=== PATIENT | female | born 1940 | race Caucasian/White ===

== ENCOUNTER 2023-01-22 10:31 | Inpatient (IN) | payer OTHER ==
[2023-01-22 11:02] VITALS: BMI 31.8
[2023-01-22 12:52] LABS: BASO % 1.1 % (0-2.0); EOS % 4.2 % (0-4.5); HEMATOCRIT 41.8 % (32.4-45.2); HEMOGLOBIN 13.8 GM/dL (10.7-15.3); LYMPH % 22.7 % (8-40); MCH 29.3 pg (25.7-33.7); MCHC 32.9 g/dl (32.0-36.0); MEAN CELL VOLUME 88.9 fl (80-96); MONO % 7.3 % (3.8-10.2); NEUT % 64.7 % (42.8-82.8); PLATELET COUNT 208 10^3/uL (134-434); RBC 4.71 M/mm3 (3.60-5.2); RDW 14.7 % (11.6-15.6)
[2023-01-22 13:04] LABS: INR 1.11 (0.83-1.09); PROTHROMBIN TIME (PATIENT) 12.9 SEC (9.7-13.0)
[2023-01-22 13:07] LABS: ACTIVATED PTT 31.4 SECONDS (25.2-36.5)
[2023-01-22 13:10] LABS: POTASSIUM 4.3 mmol/L (3.5-5.1)
[2023-01-22 13:13] LABS: ALBUMIN 3.7 g/dl (3.4-5.0); BLOOD UREA NITROGEN 12.2 mg/dL (7-18); CALCIUM 9.7 mg/dL (8.5-10.1)
[2023-01-22 13:16] LABS: CREATININE 0.8 mg/dL (0.55-1.3)
[2023-01-22 13:18] LABS: BILIRUBIN,TOTAL 0.7 mg/dL (0.2-1); TOT PROT 6.8 g/dl (6.4-8.2)
[2023-01-22] MEDS ORDERED: VANCOMYCIN 1,000 MG in DEXTROSE 5%-WATER - 250 ML IVPB SCH (13:30)
[2023-01-22] MEDS ORDERED: CEFAZOLIN SODIUM 2 GM in DEXTROSE 5%-WATER 100 ML IVPB SCH (13:30)
[2023-01-22] MEDS ORDERED: VANCOMYCIN 1 GRAM (PRE-DOCKED) 1,000 MG/250 ML BAG IVPB ONE (13:33)
[2023-01-23] MEDS: VANCOMYCIN/WATER FOR INJ (PEG) 1,000 MG/200 ML BAG IVPB SCH ×2 (01:25→13:24)
[2023-01-23 08:27] LABS: EOS % 4.8 % (0-4.5); HEMATOCRIT 40.1 % (32.4-45.2); LYMPH % 25.6 % (8-40); MCH 28.9 pg (25.7-33.7); MCHC 32.5 g/dl (32.0-36.0); MEAN PLT VOLUME 9.6 fl (7.5-11.1); MONO % 6.5 % (3.8-10.2); NEUT % 62.1 % (42.8-82.8); PLATELET COUNT 183 10^3/uL (134-434); RDW 14.6 % (11.6-15.6); WHITE BLOOD COUNT 5.1 K/mm3 (4.0-10.0)
[2023-01-23 08:51] LABS: POTASSIUM 3.8 mmol/L (3.5-5.1)
[2023-01-23 08:53] LABS: MAGNESIUM 1.9 mg/dL (1.8-2.4)
[2023-01-23 08:54] LABS: CALCIUM 8.9 mg/dL (8.5-10.1)
[2023-01-23 08:55] LABS: ALBUMIN 3.2 g/dl (3.4-5.0)
[2023-01-23 08:56] LABS: PHOSPHOROUS 3.7 mg/dL (2.5-4.9)
[2023-01-23 08:57] LABS: CREATININE 0.7 mg/dL (0.55-1.3)
[2023-01-23 08:58] LABS: BILIRUBIN,TOTAL 0.7 mg/dL (0.2-1)
[2023-01-23] MEDS: ENOXAPARIN NA (PORCINE) 40 MG/0.4 ML DISP.SYRIN SQ SCH (09:18)
[2023-01-24] MEDS: VANCOMYCIN/WATER FOR INJ (PEG) 1,000 MG/200 ML BAG IVPB SCH ×2 (03:32→14:50)
[2023-01-24] MEDS: ENOXAPARIN NA (PORCINE) 40 MG/0.4 ML DISP.SYRIN SQ SCH (09:08)
[2023-01-24] MEDS ORDERED: HYDROCORTISONE 0.5% TOPICAL OINTMENT TUBE TP PRN (16:20)
[2023-01-24] MEDS: GENTAMICIN SO4 0.1% TOPICAL OINTMENT 15 GM/TUBE TUBE TP SCH ×2 (17:51→21:31)
[2023-01-24] MEDS: HYDROCORTISONE 0.5% TOPICAL CREAM 30 GM TUBE TP PRN (17:52)
[2023-01-24] MEDS: diphenhydrAMINE HCL 25 MG CAPSULE (FP) PO PRN ×2 (21:31→21:34)
[2023-01-25] MEDS ORDERED: VANCOMYCIN 750 MG in DEXTROSE 5%-WATER - 250 ML IVPB SCH (03:00)
[2023-01-25] MEDS: VANCOMYCIN/WATER FOR INJ (PEG) 750 MG/150 ML BAG IVPB SCH ×2 (03:04→14:06)
[2023-01-25] MEDS: diphenhydrAMINE HCL 25 MG CAPSULE (FP) PO PRN ×2 (04:04→23:39)
[2023-01-25 09:08] LABS: BASO % 0.2 % (0-2.0); EOS % 7.4 % (0-4.5); HEMATOCRIT 40.8 % (32.4-45.2); HEMOGLOBIN 13.6 GM/dL (10.7-15.3); LYMPH % 20.5 % (8-40); MCH 29.3 pg (25.7-33.7); MCHC 33.2 g/dl (32.0-36.0); MEAN CELL VOLUME 88.2 fl (80-96); MEAN PLT VOLUME 9.8 fl (7.5-11.1); MONO % 5.4 % (3.8-10.2); NEUT % 66.5 % (42.8-82.8); PLATELET COUNT 180 10^3/uL (134-434); RBC 4.63 M/mm3 (3.60-5.2); RDW 14.7 % (11.6-15.6); WHITE BLOOD COUNT 6.2 K/mm3 (4.0-10.0)
[2023-01-25 09:41] LABS: POTASSIUM 4.2 mmol/L (3.5-5.1)
[2023-01-25] MEDS: HYDROCORTISONE 0.5% TOPICAL CREAM 30 GM TUBE TP PRN (09:50)
[2023-01-25] MEDS: GENTAMICIN SO4 0.1% TOPICAL OINTMENT 15 GM/TUBE TUBE TP SCH ×2 (09:50→22:36)
[2023-01-25 09:56] LABS: BLOOD UREA NITROGEN 12.6 mg/dL (7-18)
[2023-01-25 09:57] LABS: ALBUMIN 2.8 g/dl (3.4-5.0)
[2023-01-25 09:59] LABS: CALCIUM 8.5 mg/dL (8.5-10.1); CREATININE 0.7 mg/dL (0.55-1.3); MAGNESIUM 2.2 mg/dL (1.8-2.4)
[2023-01-25 10:00] LABS: TOT PROT 5.4 g/dl (6.4-8.2)
[2023-01-25 10:01] LABS: BILIRUBIN,TOTAL 0.6 mg/dL (0.2-1)
[2023-01-26] MEDS: VANCOMYCIN/WATER FOR INJ (PEG) 750 MG/150 ML BAG IVPB SCH ×2 (04:09→15:30)
[2023-01-26 09:38] LABS: BASO % 0.2 % (0-2.0); EOS % 7.4 % (0-4.5); HEMATOCRIT 41.9 % (32.4-45.2); HEMOGLOBIN 13.6 GM/dL (10.7-15.3); LYMPH % 15.2 % (8-40); MCH 28.7 pg (25.7-33.7); MCHC 32.4 g/dl (32.0-36.0); MEAN CELL VOLUME 88.6 fl (80-96); MONO % 4.3 % (3.8-10.2); NEUT % 72.9 % (42.8-82.8); PLATELET COUNT 178 10^3/uL (134-434); RBC 4.73 M/mm3 (3.60-5.2); RDW 14.6 % (11.6-15.6); WHITE BLOOD COUNT 6.4 K/mm3 (4.0-10.0)
[2023-01-26 09:52] LABS: POTASSIUM 3.9 mmol/L (3.5-5.1)
[2023-01-26 09:55] LABS: CALCIUM 8.3 mg/dL (8.5-10.1)
[2023-01-26 09:56] LABS: ALBUMIN 2.9 g/dl (3.4-5.0); BLOOD UREA NITROGEN 11.1 mg/dL (7-18)
[2023-01-26 09:59] LABS: CREATININE 0.6 mg/dL (0.55-1.3)
[2023-01-26 10:01] LABS: BILIRUBIN,TOTAL 0.5 mg/dL (0.2-1); TOT PROT 5.3 g/dl (6.4-8.2)
[2023-01-26] MEDS: GENTAMICIN SO4 0.1% TOPICAL OINTMENT 15 GM/TUBE TUBE TP SCH ×2 (13:51→22:58)
[2023-01-26] MEDS: diphenhydrAMINE HCL 25 MG CAPSULE (FP) PO PRN (22:52)
[2023-01-26] MEDS: HYDROCORTISONE 0.5% TOPICAL CREAM 30 GM TUBE TP PRN (22:54)
[2023-01-27] MEDS: VANCOMYCIN/WATER FOR INJ (PEG) 750 MG/150 ML BAG IVPB SCH ×2 (03:41→15:27)
[2023-01-27] MEDS: ACETAMINOPHEN 325 MG TABLET (FP) PO PRN (03:46)
[2023-01-27 09:35] LABS: BASO % 0.4 % (0-2.0); EOS % 6.5 % (0-4.5); HEMATOCRIT 42.2 % (32.4-45.2); HEMOGLOBIN 14.4 GM/dL (10.7-15.3); LYMPH % 13.4 % (8-40); MCH 29.7 pg (25.7-33.7); MEAN CELL VOLUME 87.3 fl (80-96); MEAN PLT VOLUME 10.1 fl (7.5-11.1); MONO % 3.8 % (3.8-10.2); NEUT % 75.9 % (42.8-82.8); PLATELET COUNT 189 10^3/uL (134-434); RBC 4.84 M/mm3 (3.60-5.2); RDW 14.7 % (11.6-15.6); WHITE BLOOD COUNT 7.7 K/mm3 (4.0-10.0)
[2023-01-27 09:57] LABS: POTASSIUM 3.9 mmol/L (3.5-5.1)
[2023-01-27 10:44] LABS: CREATININE 0.7 mg/dL (0.55-1.3)
[2023-01-27 10:45] LABS: CALCIUM 8.8 mg/dL (8.5-10.1)
[2023-01-27 10:46] LABS: ALBUMIN 2.9 g/dl (3.4-5.0); BILIRUBIN,TOTAL 0.8 mg/dL (0.2-1); BLOOD UREA NITROGEN 11.2 mg/dL (7-18); MAGNESIUM 2.1 mg/dL (1.8-2.4); TOT PROT 5.7 g/dl (6.4-8.2)
[2023-01-27] MEDS: HYDROCORTISONE 0.5% TOPICAL CREAM 30 GM TUBE TP PRN ×2 (10:56→22:42)
[2023-01-27] MEDS: GENTAMICIN SO4 0.1% TOPICAL OINTMENT 15 GM/TUBE TUBE TP SCH ×2 (12:17→22:42)
[2023-01-27] MEDS: diphenhydrAMINE HCL 25 MG CAPSULE (FP) PO PRN ×2 (15:27→22:46)
[2023-01-28] MEDS: VANCOMYCIN/WATER FOR INJ (PEG) 750 MG/150 ML BAG IVPB SCH (02:03)
[2023-01-28] MEDS: HYDROCORTISONE 0.5% TOPICAL CREAM 30 GM TUBE TP PRN (02:19)
[2023-01-28] MEDS: ACETAMINOPHEN 325 MG TABLET (FP) PO PRN ×2 (02:25→14:10)
[2023-01-28 09:21] LABS: BASO % 0.2 % (0-2.0); EOS % 7.4 % (0-4.5); HEMATOCRIT 43.9 % (32.4-45.2); HEMOGLOBIN 14.4 GM/dL (10.7-15.3); MCH 29.2 pg (25.7-33.7); MCHC 32.7 g/dl (32.0-36.0); MEAN CELL VOLUME 89.2 fl (80-96); MONO % 3.4 % (3.8-10.2); PLATELET COUNT 185 10^3/uL (134-434); RBC 4.92 M/mm3 (3.60-5.2); RDW 14.6 % (11.6-15.6); WHITE BLOOD COUNT 7.6 K/mm3 (4.0-10.0)
[2023-01-28 09:47] LABS: POTASSIUM 3.4 mmol/L (3.5-5.1)
[2023-01-28 10:04] LABS: BLOOD UREA NITROGEN 12.7 mg/dL (7-18); MAGNESIUM 2.1 mg/dL (1.8-2.4)
[2023-01-28 10:05] LABS: CALCIUM 8.7 mg/dL (8.5-10.1)
[2023-01-28 10:07] LABS: CREATININE 0.7 mg/dL (0.55-1.3)
[2023-01-28 10:08] LABS: BILIRUBIN,TOTAL 0.7 mg/dL (0.2-1); TOT PROT 5.7 g/dl (6.4-8.2)
[2023-01-28] MEDS ORDERED: DAPTOMYCIN 500 MG in SODIUM CHLORIDE 50 ML IVPB SCH (11:00)
[2023-01-28] MEDS: diphenhydrAMINE HCL 25 MG CAPSULE (FP) PO PRN ×2 (11:14→18:26)
[2023-01-28] MEDS: GENTAMICIN SO4 0.1% TOPICAL OINTMENT 15 GM/TUBE TUBE TP SCH ×2 (11:14→22:32)
[2023-01-28] MEDS: predniSONE 20 MG TABLET (UD) PO SCH (16:10)
[2023-01-29] MEDS: diphenhydrAMINE HCL 25 MG CAPSULE (FP) PO PRN ×3 (00:05→18:46)
[2023-01-29 10:31] LABS: POTASSIUM 3.6 mmol/L (3.5-5.1)
[2023-01-29 10:34] LABS: BASO % 0.6 % (0-2.0); CALCIUM 8.9 mg/dL (8.5-10.1); EOS % 1.7 % (0-4.5); HEMATOCRIT 42.6 % (32.4-45.2); HEMOGLOBIN 14.2 GM/dL (10.7-15.3); LYMPH % 12.2 % (8-40); MCH 29.4 pg (25.7-33.7); MCHC 33.4 g/dl (32.0-36.0); MEAN CELL VOLUME 88.1 fl (80-96); MEAN PLT VOLUME 10.3 fl (7.5-11.1); MONO % 4.7 % (3.8-10.2); NEUT % 80.8 % (42.8-82.8); PLATELET COUNT 191 10^3/uL (134-434); RBC 4.83 M/mm3 (3.60-5.2); RDW 14.1 % (11.6-15.6); WHITE BLOOD COUNT 9.4 K/mm3 (4.0-10.0)
[2023-01-29 10:35] LABS: BLOOD UREA NITROGEN 11.2 mg/dL (7-18)
[2023-01-29 10:38] LABS: CREATININE 0.7 mg/dL (0.55-1.3)
[2023-01-29 10:39] LABS: BILIRUBIN,TOTAL 0.7 mg/dL (0.2-1); TOT PROT 5.8 g/dl (6.4-8.2)
[2023-01-29] MEDS: GENTAMICIN SO4 0.1% TOPICAL OINTMENT 15 GM/TUBE TUBE TP SCH ×2 (10:53→23:10)
[2023-01-29] MEDS: predniSONE 20 MG TABLET (UD) PO SCH (10:53)
[2023-01-29] MEDS: DOXYCYCLINE HYCLATE 100 MG CAPSULE PO SCH ×2 (10:53→18:45)
[2023-01-29] MEDS ORDERED: predniSONE 20 MG TABLET (UD) PO ONE (11:15)
[2023-01-29] MEDS ORDERED: predniSONE 20 MG TABLET (UD) PO SCH (15:05)
[2023-01-29] MEDS ORDERED: ACETAMINOPHEN 1000 MG/100 ML BAG IVPB PRN (15:05)
[2023-01-29] MEDS ORDERED: CALAMINE 8% TOPICAL LOTION 177 ML BOTTLE TP PRN (15:20)
[2023-01-30] MEDS: diphenhydrAMINE HCL 25 MG CAPSULE (FP) PO PRN ×2 (05:36→10:07)
[2023-01-30 08:53] LABS: BASO % 0.5 % (0-2.0); EOS % 0.5 % (0-4.5); HEMATOCRIT 43.3 % (32.4-45.2); HEMOGLOBIN 14.4 GM/dL (10.7-15.3); LYMPH % 15.4 % (8-40); MCH 29.4 pg (25.7-33.7); MCHC 33.2 g/dl (32.0-36.0); MEAN CELL VOLUME 88.5 fl (80-96); MEAN PLT VOLUME 10.4 fl (7.5-11.1); NEUT % 78.6 % (42.8-82.8); PLATELET COUNT 235 10^3/uL (134-434); RBC 4.89 M/mm3 (3.60-5.2); RDW 14.5 % (11.6-15.6); WHITE BLOOD COUNT 14.8 K/mm3 (4.0-10.0)
[2023-01-30 09:21] LABS: POTASSIUM 3.8 mmol/L (3.5-5.1)
[2023-01-30 09:25] LABS: BLOOD UREA NITROGEN 13.4 mg/dL (7-18); CALCIUM 9.1 mg/dL (8.5-10.1)
[2023-01-30 09:29] LABS: CREATININE 0.6 mg/dL (0.55-1.3); PHOSPHOROUS 2.9 mg/dL (2.5-4.9)
[2023-01-30] MEDS: DOXYCYCLINE HYCLATE 100 MG CAPSULE PO SCH ×2 (09:58→17:59)
[2023-01-30] MEDS: GENTAMICIN SO4 0.1% TOPICAL OINTMENT 15 GM/TUBE TUBE TP SCH ×2 (09:58→22:35)
[2023-01-30] MEDS: predniSONE 20 MG TABLET (UD) PO SCH ×2 (09:58→10:00)
[2023-01-31] MEDS: predniSONE 20 MG TABLET (UD) PO SCH (10:30)
[2023-01-31] MEDS: DOXYCYCLINE HYCLATE 100 MG CAPSULE PO SCH ×2 (10:30→18:54)
[2023-01-31] MEDS: GENTAMICIN SO4 0.1% TOPICAL OINTMENT 15 GM/TUBE TUBE TP SCH ×2 (13:23→23:55)
[2023-01-31] MEDS: HYDROCORTISONE 0.5% TOPICAL CREAM 30 GM TUBE TP PRN (13:23)
[2023-01-31] MEDS: MINERAL OIL/PET HY-PHL TOPICAL OINTMENT 454 GM JAR TP SCH (18:54)
[2023-02-01 09:10] LABS: BASO % 0.3 % (0-2.0); EOS % 0.3 % (0-4.5); HEMATOCRIT 41.2 % (32.4-45.2); HEMOGLOBIN 13.6 GM/dL (10.7-15.3); LYMPH % 22.3 % (8-40); MEAN PLT VOLUME 10.4 fl (7.5-11.1); MONO % 6.9 % (3.8-10.2); NEUT % 70.2 % (42.8-82.8); PLATELET COUNT 224 10^3/uL (134-434); RBC 4.68 M/mm3 (3.60-5.2); RDW 14.7 % (11.6-15.6); WHITE BLOOD COUNT 11.7 K/mm3 (4.0-10.0)
[2023-02-01] MEDS: DOXYCYCLINE HYCLATE 100 MG CAPSULE PO SCH ×2 (09:17→17:39)
[2023-02-01] MEDS: predniSONE 20 MG TABLET (UD) PO SCH (09:18)
[2023-02-01] MEDS: LORATADINE 10 MG TABLET PO SCH (09:19)
[2023-02-01] MEDS: HYDROCORTISONE 0.5% TOPICAL CREAM 30 GM TUBE TP PRN (09:20)
[2023-02-01] MEDS: GENTAMICIN SO4 0.1% TOPICAL OINTMENT 15 GM/TUBE TUBE TP SCH ×2 (09:21→22:04)
[2023-02-01] MEDS: MINERAL OIL/PET HY-PHL TOPICAL OINTMENT 454 GM JAR TP SCH (09:21)
[2023-02-01] MEDS: hydrOXYzine HCL 10 MG/5 ML LIQUID BULK BOTTLE PO PRN (09:25)
[2023-02-01 09:38] LABS: POTASSIUM 3.7 mmol/L (3.5-5.1)
[2023-02-01 09:42] LABS: CALCIUM 9.1 mg/dL (8.5-10.1)
[2023-02-01 09:43] LABS: ALBUMIN 3.2 g/dl (3.4-5.0); BLOOD UREA NITROGEN 18.8 mg/dL (7-18)
[2023-02-01 09:46] LABS: CREATININE 0.7 mg/dL (0.55-1.3)
[2023-02-01 09:48] LABS: BILIRUBIN,TOTAL 0.5 mg/dL (0.2-1); TOT PROT 5.9 g/dl (6.4-8.2)
[2023-02-01] MEDS: COLLOIDAL OATMEAL 1 EACH PACKET TP SCH (10:49)
[2023-02-01] MEDS: GLY/DIMETH/PETROLAT,WHT/WATER (AVEENO) CREAM TP SCH ×3 (10:49→22:04)
[2023-02-01] MEDS ORDERED: ALPRAZolam 0.25 MG TABLET PO PRN (13:06)
[2023-02-01] MEDS ORDERED: COLLOIDAL OATMEAL 1 BAR EACH TP PRN (13:09)
[2023-02-02] MEDS: hydrOXYzine HCL 10 MG/5 ML LIQUID BULK BOTTLE PO PRN (11:32)
[2023-02-02] MEDS: DOXYCYCLINE HYCLATE 100 MG CAPSULE PO SCH (11:32)
[2023-02-02] MEDS: LORATADINE 10 MG TABLET PO SCH (11:32)
[2023-02-02] MEDS: GENTAMICIN SO4 0.1% TOPICAL OINTMENT 15 GM/TUBE TUBE TP SCH ×2 (11:32→22:34)
[2023-02-02] MEDS: GLY/DIMETH/PETROLAT,WHT/WATER (AVEENO) CREAM TP SCH ×2 (11:33→22:34)
[2023-02-02] MEDS: MINERAL OIL/PET HY-PHL TOPICAL OINTMENT 454 GM JAR TP SCH (11:33)
[2023-02-02] MEDS: COLLOIDAL OATMEAL 1 EACH PACKET TP SCH (11:33)
[2023-02-02] MEDS ORDERED: FAMOTIDINE 20 MG/50 ML IVPB 20 MG/50 ML MG IVPB ONE (15:17)
[2023-02-02] MEDS: methylPREDNISolone NA SUCC 40 MG/1 ML VIAL IVPUSH SCH ×2 (15:20→19:03)
[2023-02-03] MEDS: methylPREDNISolone NA SUCC 40 MG/1 ML VIAL IVPUSH SCH ×2 (01:21→09:44)
[2023-02-03 04:24] VITALS: RESP 18
[2023-02-03] MEDS: LORATADINE 10 MG TABLET PO SCH (09:44)
[2023-02-03] MEDS: MINERAL OIL/PET HY-PHL TOPICAL OINTMENT 454 GM JAR TP SCH (09:45)
[2023-02-03] MEDS: GENTAMICIN SO4 0.1% TOPICAL OINTMENT 15 GM/TUBE TUBE TP SCH (09:46)
[2023-02-03] MEDS: GLY/DIMETH/PETROLAT,WHT/WATER (AVEENO) CREAM TP SCH (09:46)
[2023-02-03 11:06] LABS: POTASSIUM 3.8 mmol/L (3.5-5.1)
[2023-02-03 11:07] LABS: CALCIUM 9.4 mg/dL (8.5-10.1)
[2023-02-03 11:08] LABS: ALBUMIN 3.1 g/dl (3.4-5.0); BLOOD UREA NITROGEN 17.8 mg/dL (7-18); MAGNESIUM 2.2 mg/dL (1.8-2.4)
[2023-02-03 11:11] LABS: CREATININE 0.7 mg/dL (0.55-1.3); HEMATOCRIT 43.7 % (32.4-45.2); HEMOGLOBIN 14.8 GM/dL (10.7-15.3); MCH 29.8 pg (25.7-33.7); MCHC 33.9 g/dl (32.0-36.0); MEAN CELL VOLUME 87.8 fl (80-96); MEAN PLT VOLUME 10.6 fl (7.5-11.1); PLATELET COUNT 243 10^3/uL (134-434); RBC 4.97 M/mm3 (3.60-5.2); RDW 14.4 % (11.6-15.6)
[2023-02-03 11:13] LABS: BILIRUBIN,TOTAL 0.5 mg/dL (0.2-1)
[2023-02-03 11:53] LABS: ANISOCYTOSIS 0; MACROCYTOSIS 0
[2023-02-03] MEDS: COLLOIDAL OATMEAL 1 EACH PACKET TP SCH (12:05)
[2023-02-03 14:22] VITALS: BP 117/58; PULSE 61; TEMP 98.3
== END 2023-02-03 15:32 | disposition home or self-care (01) | DRG 603 ==
LOC: JER 10:31 → JERBED 12:02 → J8W 18:48
PROVIDERS: ADMIT Internal Medicine; ATTEND Nurse Practitioner Family
DX: L03.116 Cellulitis of left lower limb (principal); L97.828 Non-pressure chronic ulcer of other part of left lower leg with other specified severity; I73.9 Peripheral vascular disease, unspecified; E78.5 Hyperlipidemia, unspecified; E66.8 Other obesity; T36.8X5A Adverse effect of other systemic antibiotics, initial encounter; Z68.31 Body mass index [BMI] 31.0-31.9, adult; I10 Essential (primary) hypertension; L27.0 Generalized skin eruption due to drugs and medicaments taken internally; A49.02 Methicillin resistant Staphylococcus aureus infection, unspecified site; Z96.653 Presence of artificial knee joint, bilateral
CPT/HCPCS: 36415; 73590-TC-LT-FY; 80048; 80053; 83036; 83605; 83735; 84100; 85025; 85610; 85651; 85730; 86140; 87040; 93005; 93010; 99285-25; G0480; J0878